=== PATIENT | male | born 1995 | race Caucasian/White ===

== ENCOUNTER 2019-11-12 02:07 | Emergency (ER) | payer OTHER, SELFPAY ==
--- NOTE | ~2019-11-12 | XR_ITS ---
EXAMINATION: XR chest 2V DATE: 11/12/2019 03:17 INDICATION: Cough. TECHNIQUE: Frontal and lateral views of the chest were obtained. COMPARISON: Chest 2 views 04/01/2019 FINDINGS: The chest demonstrates clear lungs without pneumonia, pleural effusion, or pneumothorax. Th e heart size is normal. IMPRESSION: 1. No acute cardiopulmonary disease. Reviewed, dictated and finalized at location A. [facility]
[2019-11-12 02:12] VITALS: BP 154/102; PULSE 67; RESP 18; TEMP 36.1; O2SAT 100
--- NOTE | 2019-11-12 02:30 | ED.URI ---
HPI - URI/Sore Throat General Chief Complaint: Upper Respiratory Infection Stated Complaint: cough Time Seen by Provider: 11/12/19 02:22 Source: patient and RN notes reviewed Mode of arrival: other Limitations: no limitations History of Present Illness HPI Narrative: Pt is a 24 y/o male who presents to the ED with c/o a cough that began a week ago. Pt notes that his sx woke him up tonight. Pt has a hx of bronchitis. He states that his sx are worsened when laying down. He took Ibuprofen yesterday (11/11/19) and had minimal relief of his sx. He notes that he uses a THC vape pen from the dispensary. Pt reports right sided chest tightness pain and a sore throat, but denies SOB, wheezing, and a fever. MD elicited complaint: cough Onset (ago): week(s) (1) Consistency: constant Able to tolerate fluids by mouth: Yes Exacerbating factors: supine positioning Associated symptoms: sore throat and chest pain (right sided, pressure) Treatments prior to arrival: none Related Data Allergies Allergy/AdvReac Type Severity Reaction Status Date / Time Sulfa (Sulfonamide Allergy Unknown Rash Verified 04/01/19 20:32 Antibiotics) Review of Systems Review of Systems: All systems reviewed & are unremarkable except as noted in HPI and below Constitutional: Constitutional: Denies fever(s) ENT: Reports sore throat Cardiovascular: Cardiovascular: Reports chest pain (right sided, pressure) Respiratory: Respiratory: Reports cough, Denies dyspnea and Denies wheezing PMFSH Past Medical History Medical History (Updated 11/12/19 @ 03:36 by Rick Hawthorne MD) Bronchitis Surgical History Surgical History (Updated 11/12/19 @ 02:37 by Judith Serrano) No history of previous surgery Social History Social History (Updated 10/29/19 @ 11:08 by KELLEN Garcia) Smoking status: Never smoker Alcohol intake: current Substance use: never Gender identity (if verbalized by the patient): Male Exam Const: General: healthy appearing and no acute distress Nutritional Appearance: well nourished HENMT: Mouth: Yes lip normal and Yes moist mucous membranes Eyes: Conjunctivae: conjunctivae normal Pupils: Equal, round and reactive pupils present Resp: Effort & Inspection: normal respiratory effort Auscultation: clear to auscultation bilaterally Cardio: Rate: regular rate Rhythm: regular rhythm Heart sounds: no murmurs Back/Spine/Pelvis: Back: other (Full ROM) Skin: General skin exam: normal color, dry skin and other (warm) Neuro: General: patient oriented x3 and other (alert) Speech: normal speech Extrem: General: full ROM Psych: Mental Status: mental status grossly normal Affect: normal affect Course Vital Signs Vital signs: Vital Signs Temperature 36.1 C L 11/12/19 02:12 Pulse Rate 67 11/12/19 02:12 Respiratory Rate 18 11/12/19 02:12 Blood Pressure 154/102 H 11/12/19 02:12 Pulse Oximetry 100 11/12/19 02:12 Temperature 36.8 C 11/12/19 04:00 Pulse Rate 69 11/12/19 04:00 Respiratory Rate 18 11/12/19 04:00 Blood Pressure 147/73 H 11/12/19 04:00 Pulse Oximetry 95 11/12/19 04:00 Discharge Plan Discharge Clinical Impression: Upper respiratory infection Qualifiers: URI type: unspecified URI Qualified Code(s): J06.9 - Acute upper respiratory infection, unspecified Patient Disposition: Home, Self-Care Condition: Stable Instructions: Upper Respiratory Infection (ED) Prescriptions: New albuterol sulfate 90 mcg/actuation aerosol powdr breath activated 2 inhalation INHALATION Q4H PRN (Reason: shortness of breath or wheezing) Qty: 1 RF: 0 Follow-up/Referrals: PHYSICIAN,INVASIVE MANAGER [Primary Care Provider] - Discharge Date/Time: 11/12/19 04:02
[2019-11-12] MEDS: ALBUTEROL SULFATE NEB 2.5 MG/0.5 ML INH 5 MG INHALATION (02:48)
[2019-11-12 02:49] VITALS: PULSE 72; RESP 16
[2019-11-12 02:57] VITALS: PULSE 77; RESP 16
[2019-11-12 04:00] VITALS: BP 147/73; PULSE 69; RESP 18; TEMP 36.8; O2SAT 95
== END 2019-11-12 04:02 | disposition home or self-care (01) ==
PROVIDERS: Emergency Provider Emergency Medicine
DX: J06.9 Acute upper respiratory infection, unspecified (principal)
CPT/HCPCS: 71046; 94640; 99283